=== PATIENT | male | born 1985 | race Caucasian/White ===

== ENCOUNTER 2016-05-11 08:32 | Emergency (ER) | payer OTHER ==
[~2016-05-11] VITALS: Ht 175.3 cm; Wt 118.8 kg
[~2016-05-11 08:32] MED LIST: ASPIRIN81 M2 PO; CARBAMAZEPINE200 M1 PO; NEXIUM20 MG PO; TYLENOL WITH C1 EACH PO; VICODIN,LORT1 TABLET PO; [UNRECOGNIZED DRUG - OTHER]
[2016-05-11] MEDS ORDERED: BENTYL10 MG PO (09:40)
[2016-05-11] MEDS ORDERED: TYLENOL WITH C1 EACH PO (11:08)
[2016-05-11 11:25] VITALS: BP 139/90
== END 2016-05-11 11:27 | disposition home or self-care (01) ==
LOC: EME 08:32
DX: S09.90XA Unspecified injury of head, initial encounter (principal); S80.01XA Contusion of right knee, initial encounter; M54.2 Cervicalgia; W18.30XA Fall on same level, unspecified, initial encounter; I10 Essential (primary) hypertension
CPT/HCPCS: 70450; 72125; 73564; 99281; 99284